=== PATIENT | male | born 1975 | race Hispanic/Latino ===

== ENCOUNTER 2018-03-13 10:13 | Emergency (ER) | payer SELFPAY ==
--- NOTE | 2018-03-13 10:48 | EDPHYS ---
Physician Documentation [facility] Name: Hemanth Plummer Jr Age: 42 yrs Sex: Male : 1975 Arrival Date: 03/13/2018 Time: 10:16 Bed 12 Private MD: None, None ED Physician Jose Angel Tapia HPI: 03/13 10:45 This 42 yrs old Male presents to ER via Ambulatory with complaints of Ear Pain.snw 10:45 The patient presents with pain, incapacitating, swelling. The complaints affect the snw left ear. Onset: The symptoms/episode began/occurred gradually, 1 week(s) ago, and became worse and became persistent. Modifying factors: The symptoms are alleviated by nothing, the symptoms are aggravated by touching. Associated signs and symptoms: The patient has no apparent associated signs or symptoms. Severity of symptoms: At their worst the symptoms were incapacitating in the emergency department the symptoms are unchanged. The patient has not experienced similar symptoms in the past. The patient has not recently seen a physician. denies use of ear plugs. Historical: - Allergies: 10:41 NKA; iw - Home Meds: 10:41 None [Active]; iw - PMHx: 10:41 None; iw - PSHx: 10:41 back surgery; iw - Immunization history:: Adult Immunizations not up to date. - Social history:: Smoking status: Patient uses tobacco products, smokes one-half pack cigarettes per day. - Ebola Screening: : Patient negative for fever greater than or equal to 101.5 degrees Fahrenheit, and additional compatible Ebola Virus Disease symptoms Patient denies exposure to infectious person Patient denies travel to an Ebola-affected area in the 21 days before illness onset No symptoms or risks identified at this time. ROS: 10:41 Constitutional: Negative for fever, chills, and weight loss, Eyes: Negative for injury, snw pain, redness, and discharge, Neck: Negative for injury, pain, and swelling, Cardiovascular: Negative for chest pain, palpitations, and edema, Respiratory: Negative for shortness of breath, cough, wheezing, and pleuritic chest pain, Abdomen/GI: Negative for abdominal pain, nausea, vomiting, diarrhea, and constipation, Back: Negative for injury and pain, : Negative for injury, bleeding, discharge, and swelling, MS/Extremity: Negative for injury and deformity, Skin: Negative for injury, rash, and discoloration, Neuro: Negative for headache, weakness, numbness, tingling, and seizure. 10:41 ENT: Positive for ear pain. Exam: 10:42 Constitutional: This is a well developed, well nourished patient who is awake, alert, snw and in no acute distress. Head/Face: Normocephalic, atraumatic. Eyes: Pupils equal round and reactive to light, extra-ocular motions intact. Lids and lashes normal. Conjunctiva and sclera are non-icteric and not injected. Cornea within normal limits. Periorbital areas with no swelling, redness, or edema. Neck: Trachea midline, no thyromegaly or masses palpated, and no cervical lymphadenopathy. Supple, full range of motion without nuchal rigidity, or vertebral point tenderness. No Meningismus. Chest/axilla: Normal chest wall appearance and motion. Nontender with no deformity. No lesions are appreciated. Respiratory: Lungs have equal breath sounds bilaterally, clear to auscultation and percussion. No rales, rhonchi or wheezes noted. No increased work of breathing, no retractions or nasal flaring. Abdomen/GI: Soft, non-tender, with normal bowel sounds. No distension or tympany. No guarding or rebound. No evidence of tenderness throughout. Back: No spinal tenderness. No costovertebral tenderness. Full range of motion. Skin: Warm, dry with normal turgor. Normal color with no rashes, no lesions, and no evidence of cellulitis. MS/ Extremity: Pulses equal, no cyanosis. Neurovascular intact. Full, normal range of motion. Neuro: Awake and alert, GCS 15, oriented to person, place, time, and situation. Cranial nerves II-XII grossly intact. Motor strength 5/5 in all extremities. Sensory grossly intact. Cerebellar exam normal. Normal gait. 10:42 ENT: External ear(s): are unremarkable, Ear canal(s): erythema, swelling, that is moderate, that is severe, of the left canal, TM's: not visable, to left 2nd to edema, Nose: is normal, Mouth: is normal, Posterior pharynx: is normal, Dental exam: missing teeth, diffusely, Voice: is normal. 10:42 Cardiovascular: Rate: tachycardic. Vital Signs: 10:40 BP 138 / 88; Pulse 103; Resp 18 S; Temp 98.3; Pulse Ox 98% on R/A; Weight 86.18 kg; iw Height 5 ft. 8 in. (172.72 cm); Pain 10/10; 10:40 Body Mass Index 28.89 (86.18 kg, 172.72 cm) iw Procedures: 10:43 Performed placement of ear wick. wick placed in left auditory canal. snw MDM: 10:36 Patient medically screened. snw 11:00 Data reviewed: vital signs, nurses notes. Data interpreted: Pulse oximetry: on room air snw is 98 %. Interpretation: normal. Counseling: I had a detailed discussion with the patient and/or guardian regarding: the historical points, exam findings, and any diagnostic results supporting the discharge/admit diagnosis, the presence of at least one elevated blood pressure reading (>120/80) during this emergency department visit, the need for outpatient follow up, for definitive care, to return to the emergency department if symptoms worsen or persist or if there are any questions or concerns that arise at home. Special discussion: I have referred the patient to see his PCP for further evaluation of high blood pressure. Based on the history and exam findings, there is no indication for further emergent testing or inpatient evaluation. I discussed with the patient/guardian the need to see the ENT specialist for further evaluation of the symptoms. I discussed with the patient/guardian the need to see the primary care provider for further evaluation of the symptoms. 03/13 10:41 Order name: [facility] [place]. Order: Ear wick; Complete Time: 10:53 snw Administered Medications: 10:52 Drug: fentaNYL (PF) 50 mcg Route: IM; Site: right deltoid; iw 10:52 Drug: Cortisporin Drops 4 drops Route: Otic; Site: left ear; iw 10:58 Drug: Motrin 400 mg Route: PO; iw Disposition: 03/13/18 10:47 Discharged to Home. Impression: Acute contact otitis externa, left ear. - Condition is Stable. - Discharge Instructions: Ear Drops, Adult, Otitis Externa. - Prescriptions for Tylenol- Codeine #3 300-30 mg Oral Tablet - take 2 tablets by ORAL route every 6 hours As needed; 20 tablet. Ciprodex 0.3- 0.1 % Otic Drops, Suspension - instill 4 drop by OTIC route every 12 hours for 7 days , for ears ONLY; 1 Container. - Work release form, Medication Reconciliation Form, Thank You Letter, Antibiotic Education, Prescription Opioid Use form. - Follow up: Private Physician; When: 2 - 3 days; Reason: Recheck today's complaints, Continuance of care, Re-evaluation by your physician. Follow up: Kirstie Lopes MD; When: 2 - 3 days; Reason: Recheck today's complaints, Continuance of care. Addendum: 03/14/2018 16:08 Co-signature as Attending Physician, Jose Angel Tapia MD I agree with the assessment and c parsons plan of care. Signatures: Jose Angel Tapia MD MD cha Therrien, Shelly, CONSTANTINE-C TERRAZZO MECHANIC HELPER-Csnw Nasreen Herrera RN RN iw Corrections: (The following items were deleted from the chart) 03/13 11:54 10:47 03/13/2018 10:47 Discharged to Home. Impression: Acute contact otitis externa, iw left ear. Condition is Stable. Forms are Medication Reconciliation Form, Thank You Letter, Antibiotic Education, Prescription Opioid Use. Follow up: Private Physician; When: 2 - 3 days; Reason: Recheck today's complaints, Continuance of care, Re-evaluation by your physician. Follow up: Kirstie Lopes; When: 2 - 3 days; Reason: Recheck today's complaints, Continuance of care. snw
--- NOTE | 2018-03-13 10:48 | ER ---
Nurse's Notes [facility] Name: Hemanth Plummer Jr Age: 42 yrs Sex: Male : 1975 Arrival Date: 03/13/2018 Time: 10:16 Bed 12 Private MD: None, None Diagnosis: Acute contact otitis externa, left ear Presentation: 03/13 10:38 Presenting complaint: Patient states: has had left ear pain X 1 week, worse yesterday, iw now swollen and can't hear, denies fever. Transition of care: patient was not received from another setting of care. Onset of symptoms was March 06, 2018. Risk Assessment: Do you want to hurt yourself or someone else? Patient reports no desire to harm self or others. Initial Sepsis Screen: Does the patient meet any 2 criteria? No. Patient's initial sepsis screen is negative. Does the patient have a suspected source of infection? No. Patient's initial sepsis screen is negative. Care prior to arrival: None. 10:38 Method Of Arrival: Ambulatory iw 10:38 Acuity: NIEVES 4 iw Triage Assessment: 11:45 General: Appears in no apparent distress. Behavior is calm. iw Historical: - Allergies: 10:41 NKA; iw - Home Meds: 10:41 None [Active]; iw - PMHx: 10:41 None; iw - PSHx: 10:41 back surgery; iw - Immunization history:: Adult Immunizations not up to date. - Social history:: Smoking status: Patient uses tobacco products, smokes one-half pack cigarettes per day. - Ebola Screening: : Patient negative for fever greater than or equal to 101.5 degrees Fahrenheit, and additional compatible Ebola Virus Disease symptoms Patient denies exposure to infectious person Patient denies travel to an Ebola-affected area in the 21 days before illness onset No symptoms or risks identified at this time. Screenin:50 Abuse screen: Denies threats or abuse. Denies injuries from another. Nutritional iw screening: No deficits noted. Tuberculosis screening: No symptoms or risk factors identified. Fall Risk None identified. Assessment: 11:00 General: Appears in no apparent distress. comfortable, Behavior is calm, cooperative. iw Pain: Complains of pain in left ear. Neuro: Level of Consciousness is awake, alert, obeys commands, Oriented to person, place, time, situation, Moves all extremities. Full function. Cardiovascular: Patient's skin is warm and dry. Respiratory: Respiratory effort is even, unlabored, Respiratory pattern is regular. EENT: Ear canal w/ drainage noted from left ear Reports pain in left ear. Derm: Skin is pink, warm \T\ dry. normal. Musculoskeletal: Range of motion: intact in all extremities. Vital Signs: 10:40 BP 138 / 88; Pulse 103; Resp 18 S; Temp 98.3; Pulse Ox 98% on R/A; Weight 86.18 kg; iw Height 5 ft. 8 in. (172.72 cm); Pain 10/10; 10:40 Body Mass Index 28.89 (86.18 kg, 172.72 cm) iw ED Course: 10:16 Patient arrived in ED. mr 10:16 None, None is Private Physician. mr 10:35 Marissa Choudhury FNP-C [facility]. snw 10:35 Jose Angel Tapia MD is Attending Physician. snw 10:37 Nasreen Herrera, RN is Primary Nurse. iw 10:39 Triage completed. iw 10:40 Arm band placed on. iw 10:47 Kirstie Lopes MD is Referral Physician. snw 11:00 Patient has correct armband on for positive identification. iw 11:54 No provider procedures requiring assistance completed. Patient did not have IV access iw during this emergency room visit. Administered Medications: 10:52 Drug: fentaNYL (PF) 50 mcg Route: IM; Site: right deltoid; iw 10:52 Drug: Cortisporin Drops 4 drops Route: Otic; Site: left ear; iw 10:58 Drug: Motrin 400 mg Route: PO; iw Outcome: 10:47 Discharge ordered by . snw 11:54 Patient left the ED. iw 11:54 Discharged to home ambulatory, with family. iw 11:54 Condition: good 11:54 Discharge instructions given to patient, family, Instructed on discharge instructions, follow up and referral plans. medication usage, Demonstrated understanding of instructions, follow-up care, medications, Prescriptions given X 1. Signatures: Marissa Choudhury FNP-C FNP-Priti Adair mr Nasreen Herrera, RN RN iw
[2018-03-13] MEDS ORDERED: FENTANYL CITR 100 MCG/2 ML ONE (10:50)
[2018-03-13] MEDS ORDERED: NEOMY/POLY/HC 1% OTIC DROPS ONE (10:50)
[2018-03-13] MEDS ORDERED: IBUPROFEN 400 MG TAB ONE (10:50)
[2018-03-13 11:57] VITALS: BP 138/88; TEMP 98.3; O2SAT 98
== END 2018-03-13 11:54 | disposition home or self-care (01) ==
LOC: ER 10:13
DX: H60.92 Unspecified otitis externa, left ear (principal); F17.210 Nicotine dependence, cigarettes, uncomplicated
CPT/HCPCS: 96372; 99283; J3010

== ENCOUNTER 2018-03-15 22:35 | Emergency (ER) | payer SELFPAY ==
[2018-03-15] MEDS ORDERED: LIDOCAINE 1% MPF 5 ML VIAL ONE (22:55)
--- NOTE | 2018-03-16 00:02 | EDPHYS ---
Physician Documentation [facility] Name: Hemanth Plummer Jr Age: 42 yrs Sex: Male : 1975 Arrival Date: 03/15/2018 Time: 22:38 Bed 5 Private MD: ED Physician James Bradford HPI: 03/15 23:11 This 42 yrs old Male presents to ER via Ambulatory with complaints of Drainage snw From Ear. 23:11 The patient presents with a fullness, hearing loss, pain, cannot keep drops in canal . snw The complaints affect the left ear. Onset: The symptoms/episode began/occurred 4 day(s) ago, and became persistent. Modifying factors: The symptoms are alleviated by nothing. Severity of symptoms: At their worst the symptoms were moderate severe. The patient has experienced a previous episode. The patient has been recently seen by a physician: The patient has been recently seen at the [facility] Emergency Department, this week. same complaints. Historical: - Allergies: 22:47 NKA; ak1 - Home Meds: 22:47 None [Active]; ak1 - PMHx: 22:47 None; ak1 - PSHx: 22:47 back surgery; ak1 - Immunization history:: Adult Immunizations unknown. - Social history:: Smoking status: unknown. - Ebola Screening: : No symptoms or risks identified at this time. ROS: 23:10 Constitutional: Negative for fever, chills, and weight loss, Eyes: Negative for injury, snw pain, redness, and discharge, Neck: Negative for injury, pain, and swelling, Cardiovascular: Negative for chest pain, palpitations, and edema, Respiratory: Negative for shortness of breath, cough, wheezing, and pleuritic chest pain, Abdomen/GI: Negative for abdominal pain, nausea, vomiting, diarrhea, and constipation, Back: Negative for injury and pain, : Negative for injury, bleeding, discharge, and swelling, MS/Extremity: Negative for injury and deformity, Skin: Negative for injury, rash, and discoloration, Neuro: Negative for headache, weakness, numbness, tingling, and seizure. 23:10 ENT: Positive for ear pain, cannot keep drops in ear canal. Exam: 23:07 Constitutional: This is a well developed, well nourished patient who is awake, alert, snw and in no acute distress. Head/Face: Normocephalic, atraumatic. Eyes: Pupils equal round and reactive to light, extra-ocular motions intact. Lids and lashes normal. Conjunctiva and sclera are non-icteric and not injected. Cornea within normal limits. Periorbital areas with no swelling, redness, or edema. Neck: Trachea midline, no thyromegaly or masses palpated, and no cervical lymphadenopathy. Supple, full range of motion without nuchal rigidity, or vertebral point tenderness. No Meningismus. Chest/axilla: Normal chest wall appearance and motion. Nontender with no deformity. No lesions are appreciated. Cardiovascular: Regular rate and rhythm with a normal S1 and S2. No gallops, murmurs, or rubs. Normal PMI, no JVD. No pulse deficits. Respiratory: Lungs have equal breath sounds bilaterally, clear to auscultation and percussion. No rales, rhonchi or wheezes noted. No increased work of breathing, no retractions or nasal flaring. Abdomen/GI: Soft, non-tender, with normal bowel sounds. No distension or tympany. No guarding or rebound. No evidence of tenderness throughout. Back: No spinal tenderness. No costovertebral tenderness. Full range of motion. Male : Normal genitalia with no discharge or lesions. 23:07 Neuro: Awake and alert, GCS 15, oriented to person, place, time, and situation. Cranial nerves II-XII grossly intact. Motor strength 5/5 in all extremities. Sensory grossly intact. Cerebellar exam normal. Normal gait. 23:07 Musculoskeletal/extremity: Extremities: grossly normal except: clubbing without cyanosis. 23:07 Skin: Appearance: thickened skin, reddish hue. 23:09 ENT: External ear(s): are unremarkable, Ear canal(s): cerumen impaction, swelling, that snw is moderate, that is severe, of the left canal, severe tenderness, Nose: is normal, Mouth: is normal, Voice: is normal. 23:11 ENT: ear wick well seated in canal, removed for visualization. snw Vital Signs: 22:45 BP 130 / 91; Pulse 109; Resp 16; Temp 98.3; Pulse Ox 97% on R/A; Weight 90.72 kg (R); ak1 Height 5 ft. 8 in. (172.72 cm) (R); Pain 8/10; 22:45 Body Mass Index 30.41 (90.72 kg, 172.72 cm) ak1 MDM: 22:44 Patient medically screened. snw 03/16 00:11 Data reviewed: vital signs, nurses notes. Data interpreted: Pulse oximetry: on room air snw is 97 %. Counseling: I had a detailed discussion with the patient and/or guardian regarding: the historical points, exam findings, and any diagnostic results supporting the discharge/admit diagnosis, the presence of at least one elevated blood pressure reading (>120/80) during this emergency department visit, the need for outpatient follow up, for definitive care, to return to the emergency department if symptoms worsen or persist or if there are any questions or concerns that arise at home. Special discussion: Based on the history and exam findings, there is no indication for further emergent testing or inpatient evaluation. I discussed with the patient/guardian the need to see the ENT specialist for further evaluation of the symptoms. Administered Medications: 00:21 Drug: Cortisporin Drops 4 drops Route: Otic; Site: left ear; lp1 00:21 Drug: Augmentin 875 mg Route: PO; lp1 00:21 Follow up: Response: Medication administered at discharge. lp1 00:21 Drug: Decadron 10 mg Route: IM; Site: right deltoid; lp1 00:21 Follow up: Response: No adverse reaction lp1 Disposition: : Co-signature as Attending Physician, James Bradford MD. rn Disposition: 03/16/18 00:01 Discharged to Home. Impression: Otitis media, unspecified, left ear, Otitis externa. - Condition is Stable. - Discharge Instructions: Otitis Media, Adult, Otitis Externa. - Prescriptions for Augmentin 500- 125 mg Oral Tablet - take 1 tablet by ORAL route every 8 hours for 10 days; 30 tablet. Diclofenac Sodium 75 mg Oral Tablet Sustained Release - take 1 tablet by ORAL route 2 times per day; 30 tablet. - Work release form, Medication Reconciliation Form, Thank You Letter, Antibiotic Education, Prescription Opioid Use form. - Follow up: Kirstie Lopes MD; When: 1 - 2 days; Reason: Recheck today's complaints, Continuance of care. Signatures: Marissa Choudhury, RIVET SORTER-C RIVET SORTER-Csnw James Bradford MD MD rn Kaylie Awad RN RN lp1 Fabienne Lang RN RN ak1 Corrections: (The following items were deleted from the chart) 00:24 00:01 03/16/2018 00:01 Discharged to Home. Impression: Otitis media, unspecified, left lp1 ear; Otitis externa. Condition is Stable. Forms are Medication Reconciliation Form, Thank You Letter, Antibiotic Education, Prescription Opioid Use. Follow up: Kirstie Lopes; When: 1 - 2 days; Reason: Recheck today's complaints, Continuance of care. snw
--- NOTE | 2018-03-16 00:02 | ER ---
Nurse's Notes [facility] Name: Hemanth Plummer Jr Age: 42 yrs Sex: Male : 1975 Arrival Date: 03/15/2018 Time: 22:38 Bed 5 Private MD: Diagnosis: Otitis media, unspecified, left ear;Otitis externa Presentation: 03/15 22:45 Presenting complaint: Patient states: he was seen in ER Wednesday with ear wick placed in ak1 left ear. pt stated he puts the drops in his left ear every 12 hours but the drops "do not stay". Transition of care: patient was not received from another setting of care. Onset of symptoms is unknown. Risk Assessment: Do you want to hurt yourself or someone else? Patient reports no desire to harm self or others. Initial Sepsis Screen: Does the patient meet any 2 criteria? No. Patient's initial sepsis screen is negative. Does the patient have a suspected source of infection? No. Patient's initial sepsis screen is negative. Care prior to arrival: None. 22:45 Method Of Arrival: Ambulatory ak1 22:45 Acuity: NIEVES 4 ak1 Triage Assessment: 23:49 General: Appears uncomfortable, Behavior is calm, cooperative. Pain: Complains of pain ak1 in left ear. EENT: Reports pain in left ear. Neuro: No deficits noted. Cardiovascular: No deficits noted. Respiratory: No deficits noted. GI: No signs and/or symptoms were reported involving the gastrointestinal system. : No signs and/or symptoms were reported regarding the genitourinary system. Derm: No signs and/or symptoms reported regarding the dermatologic system. Musculoskeletal: No signs and/or symptoms reported regarding the musculoskeletal system. Historical: - Allergies: 22:47 NKA; ak1 - Home Meds: 22:47 None [Active]; ak1 - PMHx: 22:47 None; ak1 - PSHx: 22:47 back surgery; ak1 - Immunization history:: Adult Immunizations unknown. - Social history:: Smoking status: unknown. - Ebola Screening: : No symptoms or risks identified at this time. Screenin:49 Abuse screen: Denies threats or abuse. Denies injuries from another. Nutritional ak1 screening: No deficits noted. Tuberculosis screening: No symptoms or risk factors identified. Fall Risk None identified. Assessment: 23:00 General: Appears uncomfortable, Behavior is appropriate for age. Pain: Complains of lp1 pain in left ear Pain currently is 10 out of 10 on a pain scale. Neuro: Level of Consciousness is awake, alert, obeys commands. Cardiovascular: Patient's skin is warm and dry. Respiratory: Respiratory effort is even, unlabored. GI: No signs and/or symptoms were reported involving the gastrointestinal system. : No signs and/or symptoms were reported regarding the genitourinary system. EENT: Ear canal ear wick in place. Derm: Skin is pink, warm \\T\\ dry. Musculoskeletal: Circulation, motion, and sensation intact. Vital Signs: 22:45 BP 130 / 91; Pulse 109; Resp 16; Temp 98.3; Pulse Ox 97% on R/A; Weight 90.72 kg (R); ak1 Height 5 ft. 8 in. (172.72 cm) (R); Pain 8/10; 22:45 Body Mass Index 30.41 (90.72 kg, 172.72 cm) ak1 ED Course: 22:38 Patient arrived in ED. es 22:43 Marissa Choudhury FNP-C is PHCP. snw 22:43 James Bradford MD is Attending Physician. snw 22:45 Arm band placed on Patient placed in an exam room, on a stretcher, Patient notified of ak1 wait time. 22:46 Triage completed. ak1 23:48 Fabienne Lang, RN is Primary Nurse. ak1 23:50 Patient has correct armband on for positive identification. Bed in low position. Call ak1 light in reach. Side rails up X 1. 03/16 00:00 Kirstie Lopes MD is Referral Physician. snw 00:21 No provider procedures requiring assistance completed. Patient did not have IV access lp1 during this emergency room visit. Administered Medications: 00:21 Drug: Cortisporin Drops 4 drops Route: Otic; Site: left ear; lp1 00:21 Drug: Augmentin 875 mg Route: PO; lp1 00:21 Follow up: Response: Medication administered at discharge. lp1 00:21 Drug: Decadron 10 mg Route: IM; Site: right deltoid; lp1 00:21 Follow up: Response: No adverse reaction lp1 Outcome: 00:01 Discharge ordered by . carson 00:22 Discharged to home ambulatory, with significant other. lp1 00:22 Condition: good 00:22 Discharge instructions given to patient, Instructed on discharge instructions, follow up and referral plans. medication usage, Demonstrated understanding of instructions, follow-up care, medications, Prescriptions given X 2. 00:24 Patient left the ED. lp1 Signatures: Marissa Choudhury, DOCUMENT CONTROL SUPERVISOR-C DOCUMENT CONTROL SUPERVISOR-Csnw Leonarda Segura Laura, RN RN lp1 Fabienne Lang RN RN ak1
[2018-03-16] MEDS ORDERED: NEOMY/POLY/HC 1% OTIC DROPS ONE (00:03)
[2018-03-16] MEDS ORDERED: DEXAMETHASONE 10 MG/ML VIAL ONE (00:04)
[2018-03-16] MEDS ORDERED: AMOX/K CLAV 875 MG TAB ONE (00:04)
[2018-03-16 00:28] VITALS: BP 130/91; TEMP 98.3; O2SAT 97
== END 2018-03-16 00:24 | disposition home or self-care (01) ==
LOC: ER 22:35
DX: H66.92 Otitis media, unspecified, left ear (principal); H60.92 Unspecified otitis externa, left ear
CPT/HCPCS: 96372; 99283; J1100

== ENCOUNTER 2019-07-05 23:02 | Emergency (ER) | payer SELFPAY ==
[2019-07-05] MEDS ORDERED: KETOROLAC 30 MG/ML INJ ONE (23:28)
[2019-07-05] MEDS ORDERED: MORPHINE 4 MG/ML SYR ONE (23:28)
--- NOTE | 2019-07-06 00:34 | ER ---
Nurse's Notes [facility] Name: Hemanth Plummer Jr Age: 43 yrs Sex: Male : 1975 Arrival Date: 07/05/2019 Time: 23:06 Bed 19 Private MD: Diagnosis: Hydrocele, unspecified;Epididymitis Presentation: 07/05 23:10 Presenting complaint: Patient states: left testicular swelling and pain that began la1 yesterday'. Transition of care: patient was not received from another setting of care. Onset of symptoms was July 05, 2019. Risk Assessment: Do you want to hurt yourself or someone else? Patient reports no desire to harm self or others. Initial Sepsis Screen: Does the patient meet any 2 criteria? No. Patient's initial sepsis screen is negative. Does the patient have a suspected source of infection? No. Patient's initial sepsis screen is negative. Care prior to arrival: None. 23:10 Method Of Arrival: Ambulatory la1 23:10 Acuity: NIEVES 3 la1 Triage Assessment: 23:23 General: Appears in no apparent distress. uncomfortable, Behavior is calm, cooperative, cc3 appropriate for age. Pain: Complains of pain in left testicle Pain currently is 10 out of 10 on a pain scale. Quality of pain is described as aching. Historical: - Allergies: 23:11 NKA; la1 - PMHx: 23:11 None; la1 - Immunization history:: Adult Immunizations up to date. - Social history:: Smoking status: Patient uses tobacco products, smokes one pack cigarettes per day. - Ebola Screening: : No symptoms or risks identified at this time. - Family history:: not pertinent. - Hospitalizations: : No recent hospitalization is reported. Screenin:23 Abuse screen: Denies threats or abuse. Denies injuries from another. Nutritional cc3 screening: No deficits noted. Tuberculosis screening: No symptoms or risk factors identified. Fall Risk Ambulatory Aid- None/Bed Rest/Nurse Assist (0 pts). Gait- Normal/Bed Rest/Wheelchair (0 pts) Mental Status- Oriented to own ability (0 pts). Assessment: 23:23 General: Appears in no apparent distress. uncomfortable, Behavior is calm, cooperative, cc3 appropriate for age. Pain: Complains of pain in left testicle Pain currently is 10 out of 10 on a pain scale. Quality of pain is described as aching. Neuro: Level of Consciousness is awake, alert, obeys commands, Oriented to person, place, time, situation, Appropriate for age. Cardiovascular: Denies chest pain, Heart tones S1 S2 present Capillary refill < 3 seconds in bilateral fingers Patient's skin is warm and dry. Respiratory: Airway is patent Respiratory effort is even, unlabored, Respiratory pattern is regular, symmetrical. GI: Abdomen is round non-distended, Bowel sounds present X 4 quads. Abd is soft and non tender X 4 quads. : No signs and/or symptoms were reported regarding the genitourinary system. EENT: No signs and/or symptoms were reported regarding the EENT system. Derm: Skin is intact, is healthy with good turgor, Skin is pink, warm \T\ dry. normal. Musculoskeletal: Circulation, motion, and sensation intact. Range of motion: intact in all extremities. 23:44 Reassessment: Patient taken by it support technician to their department by wheelchair. cc3 07/06 00:05 Reassessment: Patient appears in no apparent distress at this time. Patient and/or cc3 family updated on plan of care and expected duration. Pain level reassessed. Patient is alert, oriented x 3, equal unlabored respirations, skin warm/dry/pink. Patient came back from ultrasound department, awaiting result. Patient states feeling better. Patient states symptoms have improved. 00:33 Reassessment: Dr. Bradford ordered patient for discharge but after the IV antibiotic. cc3 01:09 Reassessment: Patient appears in no apparent distress at this time. Patient and/or cc3 family updated on plan of care and expected duration. Pain level reassessed. Patient is alert, oriented x 3, equal unlabored respirations, skin warm/dry/pink. 02:00 Reassessment: Patient appears in no apparent distress at this time. Patient and/or cc3 family updated on plan of care and expected duration. Pain level reassessed. Patient is alert, oriented x 3, equal unlabored respirations, skin warm/dry/pink. Dr. Bradford discharged the patient home with prescriptions given. IV cannula removed and patient left ER vitally stable and ambulatory. No valuables left in the patient's room. Patient denies pain at this time. Patient states feeling better. Patient states symptoms have improved. Vital Signs: 07/05 23:11 BP 136 / 99; Pulse 108; Resp 16; Temp 98.1; Pulse Ox 100% on R/A; Weight 90.72 kg; la1 Height 5 ft. 8 in. (172.72 cm); 07/06 00:13 BP 138 / 91; Pulse 99; Resp 16 S; Pulse Ox 96% on R/A; Pain 6/10; cc3 01:10 BP 128 / 87; Pulse 95; Resp 18 S; Pulse Ox 95% on R/A; cc3 01:50 BP 125 / 88; Pulse 96; Resp 16 S; Pulse Ox 95% on R/A; Pain 2/10; cc3 07/05 23:11 Body Mass Index 30.41 (90.72 kg, 172.72 cm) la1 ED Course: 07/05 23:06 Patient arrived in ED. es 23:10 Triage completed. la1 23:10 Arm band placed on left wrist. la1 23:16 James Bradford MD is Attending Physician. rn 23:23 Charlene Veras is Primary Nurse. cc3 23:23 Patient has correct armband on for positive identification. Placed in gown. Bed in low cc3 position. Call light in reach. Side rails up X 1. Pulse ox on. NIBP on. 23:30 Inserted saline lock: 20 gauge in left forearm, using aseptic technique. inserted by ED cc3 tanvi Patino. 23:57 US Scrotum Testicles In Process Unspecified. EDMS 07/06 00:33 Jair Kc MD is Referral Physician. rn 02:00 No provider procedures requiring assistance completed. IV discontinued, intact, cc3 bleeding controlled, No redness/swelling at site. Pressure dressing applied. Administered Medications: 07/05 23:35 Drug: TORadol - Ketorolac 15 mg Route: IVP; Site: left forearm; cc3 07/06 00:14 Follow up: Response: No adverse reaction; Pain is decreased cc3 07/05 23:40 Drug: morphine 4 mg {Note: RASS 0.} Route: IVP; Site: left forearm; cc3 07/06 00:14 Follow up: Response: No adverse reaction; Pain is decreased; RASS: Alert and Calm (0) cc3 00:44 Drug: Cipro 400 mg Volume: 200 ml; Route: IVPB; Infused Over: 60 mins; Site: left cc3 forearm; 02:00 Follow up: Response: No adverse reaction; IV Status: Completed infusion; IV Intake: cc3 200ml Intake: 02:00 IV: 200ml; Total: 200ml. cc3 Outcome: 00:33 Discharge ordered by . rn 02:00 Discharged to home ambulatory. cc3 02:00 Condition: stable 02:00 Discharge instructions given to patient, Instructed on discharge instructions, follow up and referral plans. medication usage, Demonstrated understanding of instructions, follow-up care, medications, Prescriptions given X 3. 02:04 Patient left the ED. cc3 Signatures: Dispatcher [employer] Leonarda Diaz Roman, MD MD rn Attema, Lee, RN RN Charlene Knutson cc3
--- NOTE | 2019-07-06 00:35 | EDPHYS ---
Physician Documentation [facility] Name: Hemanth Plummer Jr Age: 43 yrs Sex: Male : 1975 Arrival Date: 07/05/2019 Time: 23:06 Bed 19 Private MD: ED Physician James Bradford HPI: 07/05 23:23 This 43 yrs old Male presents to ER via Ambulatory with complaints of rn Testicular Swelling. 23:23 The patient presents with scrotal pain, swelling. Onset: The symptoms/episode rn began/occurred yesterday. Modifying factors: The symptoms are alleviated by nothing, the symptoms are aggravated by movement, pressure. Associated signs and symptoms: Pertinent negatives: abdominal pain, constipation, diarrhea, dysuria, fever. Severity of symptoms: At their worst the symptoms were moderate, in the emergency department the symptoms are unchanged. The patient has not experienced similar symptoms in the past. The patient has not recently seen a physician. Reports left scrotal swelling and pain, began yesterday, constant, worsening, no trauma, reports sweats, no inguinal hernias in past. NO dysuria. . Historical: - Allergies: 23:11 NKA; la1 - PMHx: 23:11 None; la1 - Immunization history:: Adult Immunizations up to date. - Social history:: Smoking status: Patient uses tobacco products, smokes one pack cigarettes per day. - Ebola Screening: : No symptoms or risks identified at this time. - Family history:: not pertinent. - Hospitalizations: : No recent hospitalization is reported. ROS: 23:23 Constitutional: Negative for fever, and weight loss, Cardiovascular: Negative for chest rn pain, palpitations, and edema, Respiratory: Negative for shortness of breath, cough, wheezing, and pleuritic chest pain, Abdomen/GI: Negative for abdominal pain, nausea, vomiting, diarrhea, and constipation, Back: Negative for injury and pain, : Negative for injury, bleeding, discharge, + for swelling and pain of left livia-scrotum MS/Extremity: Negative for injury and deformity, Skin: Negative for injury, rash, and discoloration, Neuro: Negative for headache, weakness, numbness, tingling, and seizure. Exam: 23:23 Constitutional: This is a well developed, well nourished patient who is awake, alert, rn appears uncomfortable Abdomen/GI: soft, non-tender, no masses, no inguinal swelling or tenderness Male : + swollen left livia-scrotum with fullness, mild left testicular tenderness but more pronounced superiorly. No abscess or cellulits of scrotum/perineum. Normal penis. Skin: Warm, dry with normal turgor. Normal color with no rashes, no lesions, and no evidence of cellulitis. MS/ Extremity: Pulses equal, no cyanosis. Neurovascular intact. Full, normal range of motion. Equal circumference. Neuro: Awake and alert, GCS 15. Motor strength 5/5 in all extremities. Sensory grossly intact. Vital Signs: 23:11 BP 136 / 99; Pulse 108; Resp 16; Temp 98.1; Pulse Ox 100% on R/A; Weight 90.72 kg; la1 Height 5 ft. 8 in. (172.72 cm); 07/06 00:13 BP 138 / 91; Pulse 99; Resp 16 S; Pulse Ox 96% on R/A; Pain 6/10; cc3 01:10 BP 128 / 87; Pulse 95; Resp 18 S; Pulse Ox 95% on R/A; cc3 01:50 BP 125 / 88; Pulse 96; Resp 16 S; Pulse Ox 95% on R/A; Pain 2/10; cc3 07/05 23:11 Body Mass Index 30.41 (90.72 kg, 172.72 cm) la1 MDM: 07/05 23:16 Patient medically screened. rn 07/06 00:31 Differential diagnosis: UTI, urethritis, epididimytis. Data reviewed: vital signs, rn nurses notes, lab test result(s), radiologic studies, ultrasound, and as a result, I will discharge patient. Counseling: I had a detailed discussion with the patient and/or guardian regarding: the historical points, exam findings, and any diagnostic results supporting the discharge/admit diagnosis, lab results, radiology results, the need for outpatient follow up, to return to the emergency department if symptoms worsen or persist or if there are any questions or concerns that arise at home. Response to treatment: the patient's symptoms have mildly improved after treatment, and as a result, I will discharge patient. Special discussion: I discussed with the patient/guardian in detail that at this point there is no indication for admission to the hospital. It is understood, however, that if the symptoms persist or worsen the patient needs to return immediately for re-evaluation. Based on the history and exam findings, there is no indication for further emergent testing or inpatient evaluation. I discussed with the patient/guardian the need to see the urologist for further evaluation of the symptoms. ED course: Per U/S tech, + mild enlargement of epididymis, good flow, neg for UTI. Will treat with pain meds, abx, and urology f/u. . 07/05 23:23 Order name: Urine Culture rn 07/05 23:23 Order name: Urine Microscopic Only; Complete Time: 01:01 rn 07/05 23:17 Order name: US Scrotum Testicles rn 07/06 00:11 Order name: Urine Dipstick--Ancillary (enter results); Complete Time: 01:01 mw2 07/05 23:23 Order name: IV Start; Complete Time: 23:41 rn 07/05 23:23 Order name: Urine Dipstick-Ancillary (obtain specimen); Complete Time: 00:10 rn Administered Medications: 07/05 23:35 Drug: TORadol - Ketorolac 15 mg Route: IVP; Site: left forearm; cc3 07/06 00:14 Follow up: Response: No adverse reaction; Pain is decreased cc3 07/05 23:40 Drug: morphine 4 mg {Note: RASS 0.} Route: IVP; Site: left forearm; 3 07/06 00:14 Follow up: Response: No adverse reaction; Pain is decreased; RASS: Alert and Calm (0) cc3 00:44 Drug: Cipro 400 mg Volume: 200 ml; Route: IVPB; Infused Over: 60 mins; Site: left cc3 forearm; 02:00 Follow up: Response: No adverse reaction; IV Status: Completed infusion; IV Intake: cc3 200ml Disposition: 07/06/19 00:33 Discharged to Home. Impression: Hydrocele, unspecified, Epididymitis. - Condition is Stable. - Discharge Instructions: Epididymitis, Scrotal Masses, Hydrocele, Adult. - Prescriptions for Cipro 500 mg Oral Tablet - take 1 tablet by ORAL route every 12 hours for 10 days; 20 tablet. Tylenol- Codeine #3 300-30 mg Oral Tablet - take 2 tablets by ORAL route every 6-8 hours As needed; 20 tablet. ketorolac 10 mg Oral tablet - take 1 tablet by ORAL route every 6 hours not to exceed 40 mg in 24hrs; 20 tablet. - Medication Reconciliation Form, Thank You Letter, Antibiotic Education, Prescription Opioid Use form. - Follow up: Jair Kc MD; When: As needed; Reason: Recheck today's complaints, Re-evaluation by your physician. - Problem is new. - Symptoms have improved. Signatures: Dispatcher [employer] EDMS James Bradford MD MD rn Attema, Lee, RN RN la1 Charlene Veras cc3 Corrections: (The following items were deleted from the chart) 02:04 00:33 07/06/2019 00:33 Discharged to Home. Impression: Hydrocele, unspecified; cc3 Epididymitis. Condition is Stable. Forms are Medication Reconciliation Form, Thank You Letter, Antibiotic Education, Prescription Opioid Use. Follow up: Jair Kc; When: As needed; Reason: Recheck today's complaints, Re-evaluation by your physician. Problem is new. Symptoms have improved. rn
[2019-07-06] MEDS ORDERED: CIPROFLOXACIN 400mg IV 400 MG/200 ML BAG IV ONE (00:40)
[2019-07-06 00:43] LABS: Urine Culture Reflex Order NOT NEEDED
[2019-07-06 00:44] LABS: Urine Mucus 3+ /HPF (NONE SEEN)
[2019-07-06 00:58] LABS: Urine Bacteria 20-50 /HPF (NONE SEEN); Urine RBC NONE SEEN /HPF (NONE SEEN)
[2019-07-06 00:59] LABS: Urine Sperm PRESENT (NONE SEEN)
[2019-07-06 01:00] LABS: Urine Blood NEGATIVE (NEG); Urine Glucose NEGATIVE (NEG); Urine Protein 1+ (NEG); Urine Specific Gravity >1.030 (1.005-1.030); Urine pH 5.5 (5.0-7.0)
[2019-07-06 02:14] VITALS: TEMP 98.1
[2019-07-06 02:16] VITALS: BP 128/87; O2SAT 95
--- NOTE | 2019-07-06 08:01 | RAD REPORT ---
EXAM DESCRIPTION: US - Scrotum Testicles - 07/05/2019 11:57 pm CLINICAL HISTORY: Testicular pain, scrotal pain and swelling Preliminary findings provided at the time of the study. COMPARISON: None. FINDINGS: Doppler evaluation shows normal blood flow in each testicle. No testicular mass. No suspic ious or asymmetric blood flow pattern. Small left hydrocele is present. A 6 millimeter left epididyma l cyst is present. No other significant epididymis finding. No other significant findings. IMPRESSION: No torsion or other testicular abnormality seen. Small incidental left epididymal cyst and small left hydrocele.
== END 2019-07-06 02:04 | disposition home or self-care (01) ==
LOC: ER 23:02
DX: N45.1 Epididymitis (principal); F17.210 Nicotine dependence, cigarettes, uncomplicated
CPT/HCPCS: 76870; 81003; 81015; 87086; 87088; 96365; 96375; 99284; J0744

== ENCOUNTER 2019-12-19 17:45 | Emergency (ER) | payer SELFPAY ==
[2019-12-19] MEDS ORDERED: MORPHINE 4 MG/ML SYR ONE (18:20)
[2019-12-19] MEDS ORDERED: ONDANSETRON 4 MG/2 ML VIAL ONE (18:20)
[2019-12-19] MEDS ORDERED: NA CHLORIDE 0.9% 0 ML ONE (18:20)
--- NOTE | 2019-12-19 18:50 | RAD REPORT ---
EXAM DESCRIPTION: CT - Stone Protocol - 12/19/2019 6:15 pm CLINICAL HISTORY: ABD PAIN COMPARISON: Scrotum Testicles dated 12/19/2019 TECHNIQUE: Axial 5 mm thick images were obtained without oral or IV contrast. The [id number] span s the entirety of the system including uppermost abdomen and lung bases. Exam extended through the scrotum. All CT scans are performed using dose optimization technique as appropriate and may include automated exposure control or mA/KV adjustment according to patient size. FINDINGS: No hydronephrosis is present and no obstructing ureteral calculi. No suspicious renal mass es. Isodense masses and pyelonephritis are not excluded on a stone protocol CT scan. No significant a drenal finding. No urinary bladder suspicious finding. Prostate gland and seminal vesicles within nor mal limits. Patient has bilateral fat filled inguinal hernias. No bowel involvement. Scrotal wall appears thicken ed or edematous. Epididymal tissues are prominent, more so on the left. Findings are separately detai led on testicular ultrasound. No abnormal air density. No abnormality in the perineum. Imaged portions of the liver, spleen and pancreas show no suspicious findings on non-contrast imaging . No gallbladder or biliary tree abnormality identified. Gallstones can be occult on CT imaging. No suspicious bowel findings. No appendicitis or other acute bowel process seen. Diverticulosis is mi nimal. No mass or bulky lymphadenopathy. No free air or pneumatosis. No free fluid identified. No significant bony abnormality. Lower lumbar postsurgical changes are present. IMPRESSION: No acute peritoneal or retroperitoneal findings identifiable. Epididymal tissues are prominent and scrotal wall appears mildly thickened. Bilateral fat filled ingu inal hernias are present. Isodense masses and pyelonephritis are not excluded on stone protocol technique.
--- NOTE | 2019-12-19 18:52 | RAD REPORT ---
EXAM DESCRIPTION: US - Scrotum Testicles - 12/19/2019 6:36 pm CLINICAL HISTORY: PAIN COMPARISON: Scrotum Testicles dated 07/05/2019 FINDINGS: Testicular tissue is homogeneous. No focal lesions identified. Doppler evaluation shows a normal, symmetric blood flow to testicular tissues. Epididymal tissues are prominent, left greater th an right. Epididymal tissue is not abnormally hyperemic. Epididymitis would still be possible. Minima l left hydrocele is present. No varicocele confirmed. Left epididymis does contain a small 5 millimet er cyst. IMPRESSION: No suspicion for torsion. Normal blood flow is seen within each testicle. No intratestic ular mass. Left epididymis is enlarged relative to the right but without hyperemia. Epididymitis would still be a consideration.
[2019-12-19 18:55] LABS: Absolute Lymphocytes (CBC) 2.4 K/uL (0.7-4.9); Basophils % 0.4 % (0-1.3); Hematocrit 45.5 % (39.6-49.0); Lymphocytes % 35.3 % (15.3-44.8); MPV 7.4 fL (7.6-11.3); RBC Red Blood Cell Count 5.03 M/uL (4.33-5.43)
[2019-12-19 19:13] LABS: Albumin 3.8 g/dL (3.4-5.0); Bilirubin Total 0.4 mg/dL (0.2-1.0); Potassium 4.1 mmol/L (3.5-5.1); Protein, Total 8.4 g/dL (6.4-8.2)
[2019-12-19] MEDS ORDERED: Levofloxacin 750mg IV 750 MG/150 ML BAG IV ONE (19:16)
[2019-12-19] MEDS ORDERED: CEFTRIAXONE/SWI 1gm 1 GM/10 ML SYR ONE (19:17)
[2019-12-19] MEDS ORDERED: NA CHLORIDE 0.9% 1,000 ML ONE (19:17)
[2019-12-19] MEDS ORDERED: KETOROLAC 30 MG/ML INJ ONE (19:17)
--- NOTE | 2019-12-19 19:29 | ER ---
Nurse's Notes [facility] Name: Hemanth Plummer Jr Age: 43 yrs Sex: Male : 1975 Arrival Date: 12/19/2019 Time: 17:47 Bed 23 Private MD: Diagnosis: Epididymo-orchitis;Epididymitis;Inguinal hernia Presentation: 12/18 17:48 Chief complaint: Patient states: lower abd pain, testicular swelling started yesterday. sv Denies cough, congestion. Coronavirus screen: Patient denies fever greater than 100.4F, cough, shortness of breath, or difficulty breathing. Proceed with normal triage process. Ebola Screen: No symptoms or risks identified at this time. Initial Sepsis Screen: Does the patient meet any 2 criteria? No. Patient's initial sepsis screen is negative. Does the patient have a suspected source of infection? No. Patient's initial sepsis screen is negative. Risk Assessment: Do you want to hurt yourself or someone else? Patient reports no desire to harm self or others. Care prior to arrival: Medication(s) given: Motrin, 600 mg, taken 2 hours ago. 17:48 Method Of Arrival: Ambulatory sv 17:48 Acuity: NIEVES 3 sv Triage Assessment: 17:55 General: Appears uncomfortable, Behavior is calm, cooperative. ls4 17:55 : Reports pain scrotum. ls4 Historical: - Allergies: 17:48 NKA; sv - PMHx: 17:53 None; sv - PSHx: 17:53 None; Back; sv - Immunization history:: Flu vaccine is not up to date. - Social history:: Smoking status: Patient reports the use of cigarette tobacco products, smokes one-half pack cigarettes per day. - Family history:: not pertinent. Screenin/30 17:55 Abuse screen: Denies threats or abuse. Denies injuries from another. Nutritional ls4 screening: No deficits noted. Tuberculosis screening: No symptoms or risk factors identified. Fall Risk None identified. Assessment: 12/18 19:38 Reassessment: Patient appears in no apparent distress at this time. Patient and/or ls4 family updated on plan of care and expected duration. Pain level reassessed. Patient is alert, oriented x 3, equal unlabored respirations, skin warm/dry/pink. Patient states symptoms have improved. Pain: Complains of pain in pelvis Pain currently is 2 out of 10 on a pain scale. GI: Bowel sounds present X 4 quads. Abd is soft and non tender X 4 quads. 20:30 Reassessment: Patient appears in no apparent distress at this time. Patient and/or ls4 family updated on plan of care and expected duration. Pain level reassessed. Patient is alert, oriented x 3, equal unlabored respirations, skin warm/dry/pink. Patient states feeling better. Vital Signs: 17:48 BP 148 / 97; Pulse 109; Resp 18; Temp 98.3; Pulse Ox 96% ; Weight 86.18 kg; Height 5 sv ft. 7 in. (170.18 cm); Pain 8/10; 19:38 BP 123 / 93; Pulse 77; Resp 14; Pulse Ox 100% on R/A; Pain 2/10; ls4 20:35 BP 122 / 74; Pulse 72; Resp 17; Temp 98.3; Pulse Ox 99% on R/A; Pain 3/10; ls4 17:48 Body Mass Index 29.76 (86.18 kg, 170.18 cm) sv ED Course: 12/17 17:55 Patient has correct armband on for positive identification. Bed in low position. Call ls4 light in reach. Side rails up X 1. Pulse ox on. NIBP on. 12/18 17:47 Patient arrived in ED. am2 17:48 Arm band placed on. sv 17:52 Jose Angel Tapia MD is Attending Physician. [facility] 17:52 Triage completed. sv 17:59 Estefany Pineda, RN is Primary Nurse. ls4 18:16 CT Stone Protocol In Process Unspecified. EDMS 18:35 Marissa Choudhury FNP-C is PHCP. snw 18:36 US Scrotum Testicles In Process Unspecified. EDMS 18:51 Initial lab(s) drawn, by me, sent to lab. Inserted saline lock: 20 gauge in left em1 antecubital area, using aseptic technique. Blood collected. 19:28 Jair Kc MD is Referral Physician. snw 20:30 No provider procedures requiring assistance completed. ls4 20:30 IV discontinued, intact, bleeding controlled, No redness/swelling at site. Pressure ls4 dressing applied. Administered Medications: 18:30 Drug: NS 0.9% 1000 ml Route: IV; Rate: 1 bolus; Site: left antecubital; ls4 19:30 Follow up: IV Status: Completed infusion ls4 18:30 Drug: Zofran (Ondansetron) 4 mg Route: IVP; Site: left antecubital; ls4 19:26 Follow up: Response: No adverse reaction; Marked relief of symptoms ls4 19:26 Follow up: Response: No adverse reaction; Marked relief of symptoms ls4 18:32 Drug: morphine 4 mg Route: IVP; Site: left antecubital; ls4 19:00 Follow up: Response: No adverse reaction; Marked relief of symptoms ls4 18:59 Not Given (Other Intervention Used; o): morphine 2 mg IVP once; (PAIN>8) RASS on ADMN: ls4 Combtv4, Very Agttd3, Agttd2, Rstlss1, AlertClm0, Drwsy-1, LtSdtn-2, ModSdtn-3, DpSdtn-4, UnArsble-5 x2 19:10 Drug: Rocephin 1 grams Route: IV; Rate: per protocol; Site: right antecubital; ls4 19:29 Follow up: Response: No adverse reaction; IV Status: Completed infusion; IV Intake: 48ulqm2 19:19 Drug: LevaQUIN 750 mg Volume: 150 ml; Route: IVPB; Infused Over: 90 mins; Site: right ls4 antecubital; 20:30 Follow up: IV Status: Completed infusion; IV Intake: 150ml ls4 20:30 Follow up: Response: No adverse reaction ls4 19:28 Drug: TORadol 30 mg Route: IVP; Site: left antecubital; ls4 19:36 Follow up: Response: No adverse reaction; Marked relief of symptoms ls4 20:00 Follow up: Response: No adverse reaction; Marked relief of symptoms ls4 Intake: 19:29 IV: 10ml; Total: 10ml. ls4 20:30 IV: 150ml; Total: 160ml. ls4 Outcome: 19:29 Discharge ordered by MD. byrd 20:30 Discharged to home ambulatory. ls4 20:30 Condition: good 20:30 Discharge instructions given to patient, Instructed on discharge instructions, follow up and referral plans. medication usage. 21:06 Patient left the ED. ls4 Signatures: Dispatcher [employer] Kirstie Desai, RN RN Jose Angel Persaud MD MD cha Therrien, Shelly, DIRECTOR OF DESIGN-C DIRECTOR OF DESIGN-Csnw Primo Akbar 1 Naomi Jaramillo am2 Estefany Pineda RN RN ls4 Corrections: (The following items were deleted from the chart) 19:00 18:30 Zofran (Ondansetron) 4 mg IVP in right antecubital ls4 ls4
--- NOTE | 2019-12-19 19:30 | EDPHYS ---
Physician Documentation [facility] Name: Hemanth Plummer Jr Age: 43 yrs Sex: Male : 1975 Arrival Date: 12/19/2019 Time: 17:47 Bed 23 Private MD: ED Physician Jose Angel Tapia HPI: 12/18 18:08 This 43 yrs old Male presents to ER via Ambulatory with complaints of manjit Abdominal Pain - low, Testicular Swelling. 18:08 The patient presents with flank pain, of the left low back and right low back, scrotal manjit pain, of the right side, of the left side, of both sides. Onset: The symptoms/episode began/occurred 3 day(s) ago. Modifying factors: The symptoms are alleviated by nothing, the symptoms are aggravated by nothing. Associated signs and symptoms: The patient has no apparent associated signs or symptoms. Severity of symptoms: At their worst the symptoms were moderate, in the emergency department the symptoms are unchanged. The patient has experienced similar episodes in the past, a few times. Historical: - Allergies: 17:48 NKA; sv - PMHx: 17:53 None; sv - PSHx: 17:53 None; Back; sv - Immunization history:: Flu vaccine is not up to date. - Social history:: Smoking status: Patient reports the use of cigarette tobacco products, smokes one-half pack cigarettes per day. - Family history:: not pertinent. ROS: 18:08 Constitutional: Negative for fever, chills, and weight loss, Eyes: Negative for injury, manjit pain, redness, and discharge, ENT: Negative for injury, pain, and discharge, Neck: Negative for injury, pain, and swelling, Cardiovascular: Negative for chest pain, palpitations, and edema, Respiratory: Negative for shortness of breath, cough, wheezing, and pleuritic chest pain, Back: Negative for injury and pain, MS/Extremity: Negative for injury and deformity, Skin: Negative for injury, rash, and discoloration, Neuro: Negative for headache, weakness, numbness, tingling, and seizure, Psych: Negative for depression, anxiety, suicide ideation, homicidal ideation, and hallucinations, Allergy/Immunology: Negative for hives, rash, and allergies, Endocrine: Negative for neck swelling, polydipsia, polyuria, polyphagia, and marked weight changes, Hematologic/Lymphatic: Negative for swollen nodes, abnormal bleeding, and unusual bruising. 18:08 Abdomen/GI: Positive for abdominal pain, of the suprapubic area, right lower quadrant and left lower quadrant. Exam: 18:08 Constitutional: This is a well developed, well nourished patient who is awake, alert, manjit and in no acute distress. Head/Face: Normocephalic, atraumatic. Eyes: Pupils equal round and reactive to light, extra-ocular motions intact. Lids and lashes normal. Conjunctiva and sclera are non-icteric and not injected. Cornea within normal limits. Periorbital areas with no swelling, redness, or edema. ENT: Nares patent. No nasal discharge, no septal abnormalities noted. Tympanic membranes are normal and external auditory canals are clear. Oropharynx with no redness, swelling, or masses, exudates, or evidence of obstruction, uvula midline. Mucous membranes moist. Neck: Trachea midline, no thyromegaly or masses palpated, and no cervical lymphadenopathy. Supple, full range of motion without nuchal rigidity, or vertebral point tenderness. No Meningismus. Chest/axilla: Normal chest wall appearance and motion. Nontender with no deformity. No lesions are appreciated. Cardiovascular: Regular rate and rhythm with a normal S1 and S2. No gallops, murmurs, or rubs. Normal PMI, no JVD. No pulse deficits. Respiratory: Lungs have equal breath sounds bilaterally, clear to auscultation and percussion. No rales, rhonchi or wheezes noted. No increased work of breathing, no retractions or nasal flaring. Back: No spinal tenderness. No costovertebral tenderness. Full range of motion. Skin: Warm, dry with normal turgor. Normal color with no rashes, no lesions, and no evidence of cellulitis. MS/ Extremity: Pulses equal, no cyanosis. Neurovascular intact. Full, normal range of motion. Neuro: Awake and alert, GCS 15, oriented to person, place, time, and situation. Cranial nerves II-XII grossly intact. Motor strength 5/5 in all extremities. Sensory grossly intact. Cerebellar exam normal. Normal gait. Psych: Awake, alert, with orientation to person, place and time. Behavior, mood, and affect are within normal limits. 18:08 Abdomen/GI: Inspection: abdomen appears normal, Bowel sounds: active, Palpation: mild abdominal tenderness, in the suprapubic area, right lower quadrant and left lower quadrant, Liver: no appreciated palpable abnormalities, Hernia: not appreciated. Vital Signs: 17:48 BP 148 / 97; Pulse 109; Resp 18; Temp 98.3; Pulse Ox 96% ; Weight 86.18 kg; Height 5 sv ft. 7 in. (170.18 cm); Pain 8/10; 19:38 BP 123 / 93; Pulse 77; Resp 14; Pulse Ox 100% on R/A; Pain 2/10; ls4 20:35 BP 122 / 74; Pulse 72; Resp 17; Temp 98.3; Pulse Ox 99% on R/A; Pain 3/10; ls4 17:48 Body Mass Index 29.76 (86.18 kg, 170.18 cm) sv MDM: 17:53 Patient medically screened. [facility] 18:10 Data reviewed: vital signs, nurses notes, lab test result(s), radiologic studies, CT manjit scan, ultrasound. 12/18 18:06 Order name: CBC with Diff; Complete Time: 18:58 [facility] 12/18 18:06 Order name: Comprehensive Metabolic Panel; Complete Time: 19:27 [facility] 12/18 18:06 Order name: Urine Culture [facility] 12/18 18:06 Order name: US Scrotum Testicles; Complete Time: 18:57 [facility] 12/18 18:06 Order name: CT Stone Protocol; Complete Time: 18:57 [facility] 12/18 20:32 Order name: Urine Dipstick--Ancillary (enter results); Complete Time: 00:03 ma 12/18 18:06 Order name: Urine Dipstick-Ancillary (obtain specimen); Complete Time: 19:34 [facility] Administered Medications: 18:30 Drug: NS 0.9% 1000 ml Route: IV; Rate: 1 bolus; Site: left antecubital; ls4 19:30 Follow up: IV Status: Completed infusion ls4 18:30 Drug: Zofran (Ondansetron) 4 mg Route: IVP; Site: left antecubital; ls4 19:26 Follow up: Response: No adverse reaction; Marked relief of symptoms ls4 19:26 Follow up: Response: No adverse reaction; Marked relief of symptoms ls4 18:32 Drug: morphine 4 mg Route: IVP; Site: left antecubital; ls4 19:00 Follow up: Response: No adverse reaction; Marked relief of symptoms ls4 18:59 Not Given (Other Intervention Used; o): morphine 2 mg IVP once; (PAIN>8) RASS on ADMN: ls4 Combtv4, Very Agttd3, Agttd2, Rstlss1, AlertClm0, Drwsy-1, LtSdtn-2, ModSdtn-3, DpSdtn-4, UnArsble-5 x2 19:10 Drug: Rocephin 1 grams Route: IV; Rate: per protocol; Site: right antecubital; ls4 19:29 Follow up: Response: No adverse reaction; IV Status: Completed infusion; IV Intake: [id number] 19:19 Drug: LevaQUIN 750 mg Volume: 150 ml; Route: IVPB; Infused Over: 90 mins; Site: right ls4 antecubital; 20:30 Follow up: IV Status: Completed infusion; IV Intake: 150ml ls4 20:30 Follow up: Response: No adverse reaction ls4 19:28 Drug: TORadol 30 mg Route: IVP; Site: left antecubital; ls4 19:36 Follow up: Response: No adverse reaction; Marked relief of symptoms ls4 20:00 Follow up: Response: No adverse reaction; Marked relief of symptoms ls4 Disposition: 12/19/19 19:29 Discharged to Home. Impression: Epididymo-orchitis, Epididymitis, Inguinal hernia. - Condition is Stable. - Discharge Instructions: Epididymitis, Orchitis, Inguinal Hernia, Adult, [id number]-[id number], Inguinal Hernia, Adult, Testicular Self-Exam, [id number]-[id number]. - Prescriptions for Levaquin 750 mg Oral Tablet - take 1 tablet by ORAL route once daily for 8-10 days; 9 tablet. Tylenol- Codeine #3 300-30 mg Oral Tablet - take 2 tablet by ORAL route every 6 hours As needed; 30 tablet. Motrin IB 200 mg Oral Tablet - take 1 tablet by ORAL route every 6 hours As needed as needed with food; 30 tablet. - Medication Reconciliation Form, Thank You Letter, Antibiotic Education, Prescription Opioid Use form. - Follow up: Private Physician; When: 2 - 3 days; Reason: Recheck today's complaints, Continuance of care, Re-evaluation by your physician. Follow up: Jair Kc; When: 2 - 3 days; Reason: Recheck today's complaints, Re-evaluation by your physician. - Problem is new. - Symptoms have improved. Signatures: Dispatcher [employer] Kirstie Desai, RN RN Jose Angel Persaud MD MD cha Therrien, Shelly, FLAP PRESSER-C FLAP PRESSER-Csnw Estefany Pineda, RN RN ls4 Corrections: (The following items were deleted from the chart) 21:06 19:29 12/19/2019 19:29 Discharged to Home. Impression: Epididymo-orchitis; ls4 Epididymitis; Inguinal hernia. Condition is Stable. Discharge Instructions: Epididymitis, Orchitis, Testicular Self-Exam, [id number], Inguinal Hernia, Adult, [id number]-[id number], Inguinal Hernia, Adult. Prescriptions for Levaquin 750 mg Oral Tablet - take 1 tablet by ORAL route once daily for 8-10 days; 9 tablet, Tylenol-Codeine #3 300-30 mg Oral Tablet - take 2 tablet by ORAL route every 6 hours As needed; 30 tablet, Motrin IB 200 mg Oral Tablet - take 1 tablet by ORAL route every 6 hours As needed as needed with food; 30 tablet. and Forms are Medication Reconciliation Form, Thank You Letter, Antibiotic Education, Prescription Opioid Use. Follow up: Private Physician; When: 2 - 3 days; Reason: Recheck today's complaints, Continuance of care, Re-evaluation by your physician. Follow up: Jair Kc; When: 2 - 3 days; Reason: Recheck today's complaints, Re-evaluation by your physician. Problem is new. Symptoms have improved. snw
[2019-12-19 20:55] LABS: Urine Blood NEGATIVE (NEG); Urine Glucose NEGATIVE (NEG); Urine Protein 1+ (NEG); Urine Specific Gravity >1.030 (1.005-1.030); Urine pH 5.5 (5.0-7.0)
[2019-12-19 21:20] VITALS: TEMP 98.3
[2019-12-19 21:23] VITALS: BP 122/74; O2SAT 99
== END 2019-12-19 21:06 | disposition home or self-care (01) ==
LOC: ER 17:45
DX: N45.3 Epididymo-orchitis (principal); N45.1 Epididymitis; K40.20 Bilateral inguinal hernia, without obstruction or gangrene, not specified as recurrent; F17.210 Nicotine dependence, cigarettes, uncomplicated
CPT/HCPCS: 36415; 74176; 76377; 76870; 80053; 81003; 85025; 87086; 87088; 96361; 96365; 96375; 99284; J0696; J2405; J7030

== ENCOUNTER 2020-01-31 15:04 | Emergency (ER) | payer SELFPAY ==
--- NOTE | 2020-01-31 15:23 | EDPHYS ---
Physician Documentation [facility] Name: Hemanth Plummer Jr Age: 44 yrs Sex: Male : 1975 Arrival Date: 01/31/2020 Time: 15:09 Bed 19 Private MD: ED Physician Precious Jin HPI: 01/30 15:28 This 44 yrs old Male presents to ER via Ambulatory with complaints of STD snw Exposure. 15:28 Onset: The symptoms/episode began/occurred suddenly, 3 day(s) ago, post unprotected snw intercourse. Associated signs and symptoms: Pertinent positives: dysuria, post unprotected intercourse. It is unknown whether or not the patient has had similar symptoms in the past. The patient has not recently seen a physician. Historical: - Allergies: 15:18 NKA; em - Home Meds: 15:18 None [Active]; em - PMHx: 15:18 None; em - PSHx: 15:18 Back; Hernia repair; em - Immunization history:: Adult Immunizations up to date. - Social history:: Smoking status: Patient reports the use of cigarette tobacco products, smokes one-half pack cigarettes per day. ROS: 15:28 Constitutional: Negative for fever, chills, and weight loss, Eyes: Negative for injury, snw pain, redness, and discharge, ENT: Negative for injury, pain, and discharge, Neck: Negative for injury, pain, and swelling, Cardiovascular: Negative for chest pain, palpitations, and edema, Respiratory: Negative for shortness of breath, cough, wheezing, and pleuritic chest pain, Abdomen/GI: Negative for abdominal pain, nausea, vomiting, diarrhea, and constipation, Back: Negative for injury and pain, MS/Extremity: Negative for injury and deformity, Skin: Negative for injury, rash, and discoloration, Neuro: Negative for headache, weakness, numbness, tingling, and seizure, Psych: Negative for depression, anxiety, suicide ideation, homicidal ideation, and hallucinations. 15:28 : Positive for urinary symptoms, burning with urination, penile discharge, greenish/yellow discharge x 3 days. Exam: 15:28 Constitutional: This is a well developed, well nourished patient who is awake, alert, snw and in no acute distress. Head/Face: Normocephalic, atraumatic. Eyes: Pupils equal round and reactive to light, extra-ocular motions intact. Lids and lashes normal. Conjunctiva and sclera are non-icteric and not injected. Cornea within normal limits. Periorbital areas with no swelling, redness, or edema. ENT: Nares patent. No nasal discharge, no septal abnormalities noted. Tympanic membranes are normal and external auditory canals are clear. Oropharynx with no redness, swelling, or masses, exudates, or evidence of obstruction, uvula midline. Mucous membranes moist. Neck: Trachea midline, no thyromegaly or masses palpated, and no cervical lymphadenopathy. Supple, full range of motion without nuchal rigidity, or vertebral point tenderness. No Meningismus. Chest/axilla: Normal chest wall appearance and motion. Nontender with no deformity. No lesions are appreciated. Cardiovascular: Regular rate and rhythm with a normal S1 and S2. No gallops, murmurs, or rubs. Normal PMI, no JVD. No pulse deficits. Respiratory: Lungs have equal breath sounds bilaterally, clear to auscultation and percussion. No rales, rhonchi or wheezes noted. No increased work of breathing, no retractions or nasal flaring. Abdomen/GI: Soft, non-tender, with normal bowel sounds. No distension or tympany. No guarding or rebound. No evidence of tenderness throughout. Back: No spinal tenderness. No costovertebral tenderness. Full range of motion. Skin: Warm, dry with normal turgor. Normal color with no rashes, no lesions, and no evidence of cellulitis. MS/ Extremity: Pulses equal, no cyanosis. Neurovascular intact. Full, normal range of motion. Neuro: Awake and alert, GCS 15, oriented to person, place, time, and situation. Cranial nerves II-XII grossly intact. Motor strength 5/5 in all extremities. Sensory grossly intact. Cerebellar exam normal. Normal gait. Psych: Awake, alert, with orientation to person, place and time. Behavior, mood, and affect are within normal limits. Vital Signs: 15:16 BP 129 / 93; Pulse 103; Resp 18; Temp 98.6(O); Pulse Ox 100% on R/A; Weight 92.99 kg; em Height 5 ft. 7 in. (170.18 cm); Pain 6/10; 15:16 Body Mass Index 32.11 (92.99 kg, 170.18 cm) MDM: 15:21 Patient medically screened. snw 15:27 Data reviewed: vital signs, nurses notes. Data interpreted: Pulse oximetry: on room air snw is 100 %. Interpretation: normal. Counseling: I had a detailed discussion with the patient and/or guardian regarding: the historical points, exam findings, and any diagnostic results supporting the discharge/admit diagnosis, the need for outpatient follow up, to return to the emergency department if symptoms worsen or persist or if there are any questions or concerns that arise at home. Special discussion: I have referred the patient to see his PCP for further evaluation of high blood pressure. Based on the history and exam findings, there is no indication for further emergent testing or inpatient evaluation. I discussed with the patient/guardian the need to see the primary care provider for further evaluation of the symptoms. Administered Medications: 15:35 Drug: Zithromax 1 grams Route: PO; 15:45 Follow up: Response: No adverse reaction 15:36 Drug: Rocephin (cefTRIAXone) 500 mg Route: IM; Site: left ventrogluteal; 15:45 Follow up: Response: No adverse reaction Disposition: 01/31/20 15:23 Discharged to Home. Impression: Urethritis and urethral syndrome. - Condition is Stable. - Discharge Instructions: Sexually Transmitted Disease, Urethritis, Adult, Safe Sex. - Medication Reconciliation Form, Thank You Letter, Antibiotic Education, Prescription Opioid Use form. - Follow up: Emergency Department; When: As needed; Reason: Worsening of condition. Follow up: Private Physician; When: 2 - 3 days; Reason: Recheck today's complaints, Continuance of care, Re-evaluation by your physician. Addendum: 02/02/2020 18:21 Co-signature as Attending Physician, Precious Jin MD. m a2 Signatures: Marissa Choudhury, CONSTANTINE-C CHIEF LIFESTYLE OFFICER-Andreyw Mike Correa, RN RN Precious Jin MD MD [facility] Jenae Hurtado RN RN Corrections: (The following items were deleted from the chart) 01/30 15:46 15:23 01/31/2020 15:23 Discharged to Home. Impression: Urethritis and urethral ah syndrome. Condition is Stable. Forms are Medication Reconciliation Form, Thank You Letter, Antibiotic Education, Prescription Opioid Use. Follow up: Emergency Department; When: As needed; Reason: Worsening of condition. Follow up: Private Physician; When: 2 - 3 days; Reason: Recheck today's complaints, Continuance of care, Re-evaluation by your physician. carson
--- NOTE | 2020-01-31 15:23 | ER ---
Nurse's Notes [facility] Name: Hemanth Plummer Jr Age: 44 yrs Sex: Male : 1975 Arrival Date: 01/31/2020 Time: 15:09 Bed 19 Private MD: Diagnosis: Urethritis and urethral syndrome Presentation: 01/30 15:16 Chief complaint: Patient states: think I have STD, reports burning with urination and em discharge for 3 days, denies fever. Coronavirus screen: Proceed with normal triage. Patient denies a cough. Patient denies shortness of breath or difficulty breathing. Patient denies measured and/or subjective temperature greater than 100.4F prior to today's visit. Patient denies travel on a cruise ship or to a country the [facility] currently lists as an affected area. Patient denies contact with known and/or suspected case of COVID-19. Ebola Screen: Patient negative for fever greater than or equal to 101.5 degrees Fahrenheit, and additional compatible Ebola Virus Disease symptoms Patient denies exposure to infectious person. Patient denies travel to an Ebola-affected area in the 21 days before illness onset. No symptoms or risks identified at this time. Initial Sepsis Screen: Does the patient meet any 2 criteria? HR > 90 bpm. No. Patient's initial sepsis screen is negative. Does the patient have a suspected source of infection? Yes: Dysuria/Frequency/Urgency/UTI. Risk Assessment: Do you want to hurt yourself or someone else? Patient reports no desire to harm self or others. Onset of symptoms was January 27, 2020. 15:16 Method Of Arrival: Ambulatory em 15:16 Acuity: NIEVES 4 em Historical: - Allergies: 15:18 NKA; em - Home Meds: 15:18 None [Active]; em - PMHx: 15:18 None; em - PSHx: 15:18 Back; Hernia repair; em - Immunization history:: Adult Immunizations up to date. - Social history:: Smoking status: Patient reports the use of cigarette tobacco products, smokes one-half pack cigarettes per day. Screenin:38 Abuse screen: Denies threats or abuse. Nutritional screening: No deficits noted. Tuberculosis screening: No symptoms or risk factors identified. Fall Risk None identified. Assessment: 15:36 General: Appears in no apparent distress. Pain: Denies pain. Neuro: Level of ah Consciousness is awake, alert, Oriented to person, place, time, situation. Cardiovascular: Capillary refill Patient's skin is warm and dry. Respiratory: Airway is patent Respiratory effort is even, unlabored, Respiratory pattern is regular, symmetrical. GI: No signs and/or symptoms were reported involving the gastrointestinal system. Patient currently denies nausea, vomiting. : Reports discharge, from penis that is 3 days pain. EENT: No signs and/or symptoms were reported regarding the EENT system. Derm: No signs and/or symptoms reported regarding the dermatologic system. Musculoskeletal: No signs and/or symptoms reported regarding the musculoskeletal system. Vital Signs: 15:16 BP 129 / 93; Pulse 103; Resp 18; Temp 98.6(O); Pulse Ox 100% on R/A; Weight 92.99 kg; em Height 5 ft. 7 in. (170.18 cm); Pain 6/10; 15:16 Body Mass Index 32.11 (92.99 kg, 170.18 cm) em ED Course: 15:09 Patient arrived in ED. mr 15:18 Triage completed. em 15:18 Arm band placed on. em 15:21 Marissa Choudhury FNP-C is [facility]. snw 15:21 Precious Jin MD is Attending Physician. snw 15:22 Jenae Hurtado, RN is Primary Nurse. ah 15:44 Patient has correct armband on for positive identification. Call light in reach. ah 15:44 No provider procedures requiring assistance completed. Patient did not have IV access during this emergency room visit. Administered Medications: 15:35 Drug: Zithromax 1 grams Route: PO; 15:45 Follow up: Response: No adverse reaction 15:36 Drug: Rocephin (cefTRIAXone) 500 mg Route: IM; Site: left ventrogluteal; 15:45 Follow up: Response: No adverse reaction Outcome: 15:23 Discharge ordered by . snw 15:43 Discharged to home ambulatory. 15:43 Condition: good 15:43 Discharge instructions given to patient, Instructed on discharge instructions, follow up and referral plans. Demonstrated understanding of instructions, follow-up care. 15:46 Patient left the ED. Signatures: Marissa Choudhury FNP-C FNP-Betty Adair mr Toneyoz, Mike, RN RN Jenae Boyd, RN RN
[2020-01-31] MEDS ORDERED: AZITHROMYCIN 250 MG TAB ONE ×2 (15:33→15:35)
[2020-01-31] MEDS ORDERED: CEFTRIAXONE 500 MG/VIAL ONE (15:33)
[2020-01-31] MEDS ORDERED: LIDOCAINE 1% MPF 2 ML AMPULE ONE (15:35)
[2020-01-31 15:52] VITALS: BP 129/93; TEMP 98.6; O2SAT 100
== END 2020-01-31 15:46 | disposition home or self-care (01) ==
LOC: ER 15:04
DX: N34.3 Urethral syndrome, unspecified (principal); F17.210 Nicotine dependence, cigarettes, uncomplicated
CPT/HCPCS: 96372; 99283; J0696; J2001

== ENCOUNTER 2024-06-19 12:56 | Emergency (ER) | payer OTHER, SELFPAY ==
[2024-06-19] MEDS ORDERED: HYDROCODONE/APAP 7.5/325 MG TAB ONE (13:21)
[2024-06-19] MEDS ORDERED: TDAP (DIPHTH,PERTUSS(ACELL),TET VAC) 0.5 ML VIAL IMVAC ONE (13:21)
--- NOTE | 2024-06-19 13:31 | RAD REPORT ---
EXAMINATION: CT MAXILLOFACIAL WITHOUT CONTRAST CLINICAL INDICATION: Facial injury and pain status post trauma TECHNIQUE: Axial images were obtained through the facial bones and orbits without intravenous contras t. Sagittal and coronal reconstructions were created from the data. One or more of the following dose reduction techniques were used: Automated exposure control, adjustment of the mA and/or kV accor ding to patient size, and/or iterative reconstruction. Unless otherwise specified, incidental findings do not require dedicated imaging follow-up. COMPARISON: No prior exam. FINDINGS: Left orbital floor fracture. The fracture is depressed 7 mm into the left maxillary sinus. Blood is present within the left maxillary sinus. Air within the superficial tissues left cheek The left globe is intact. No TMJ dislocation Dental caries IMPRESSION: Left orbital floor fracture
[2024-06-19] MEDS ORDERED: LIDOCAINE 2% W/EPI 1:200,000 MPF 20 ML VIAL IM ONE (14:39)
--- NOTE | 2024-06-19 15:20 | EDPHYS ---
Physician Documentation [facility] Name: Hemanth Plummer Jr Age: 48 yrs Sex: Male : 1975 Arrival Date: 06/19/2024 Time: 12:56 Bed 9 Private MD: ED Physician James Bradford HPI: 06/19 13:15 This 48 yrs old Male presents to ER via Ambulatory with complaints of Facial cp Injury. 13:15 The patient or guardian reports injury, trauma. The complaints affect the nose, left cp cheek and left eye. Context of injury: The problem was sustained at work, resulted from struck by tree limb accidently. Onset: The symptoms/episode began/occurred today. Associated signs and symptoms: Loss of consciousness: This patient did not experience any loss of consciousness. Pertinent negatives: headache, neck pain, vomiting. Historical: - Allergies: 13:08 NKA; iw - Home Meds: 13:08 None [Active]; iw - PMHx: 13:08 None; iw - Immunization history:: Last tetanus immunization: > 10 years ago. - Infectious Disease History:: Denies. - Social history:: Smoking status: Patient denies any tobacco usage or history of. ROS: 13:20 Constitutional: hx per hpi cp 13:20 Neck: Negative for pain with movement, pain at rest, cp 13:20 Cardiovascular: Negative for chest pain, 13:20 Abdomen/GI: Negative for vomiting, 13:20 Back: Negative for pain at rest, pain with movement, 13:20 Neuro: Negative for altered mental status, headache, loss of consciousness, 13:20 All other systems are negative, Exam: 13:25 Constitutional: The patient appears in no acute distress, alert, awake, cp non-diaphoretic, non-toxic, well developed, well nourished, uncomfortable, 13:25 Head/face: Noted is contusion, that is superficial, of the left cheek, a cp laceration(s), that is deep, that is linear, of the left cheek, swelling, that is mild, of the left cheek, Sinus tenderness, that is moderate, is located over the left maxillary sinus, 13:25 Eyes: Periorbital structures: appear normal, Pupils: equal, round, and reactive to light and accomodation, Extraocular movements: intact throughout, Conjunctiva: normal, no exudate, no injection, Sclera: no appreciated abnormality, Lids and lashes: appear normal, bilaterally, Visual bro: are intact, 13:25 ENT: External ear(s): are unremarkable, Nose: is normal, Mouth: Lips: moist, Oral mucosa: pink and intact, moist, Posterior pharynx: Airway: no evidence of obstruction, patent, 13:25 Neck: C-spine: vertebral tenderness, is not appreciated, crepitus, is not appreciated, ROM/movement: is normal, is supple, without pain, no range of motions limitations, 13:25 Chest/axilla: Inspection: normal, Palpation: is normal, no crepitus, no tenderness, 13:25 Cardiovascular: Rate: tachycardic, Rhythm: regular, 13:25 Respiratory: the patient does not display signs of respiratory distress, Respirations: normal, no use of accessory muscles, no retractions, labored breathing, is not present, Breath sounds: are clear throughout, no decreased breath sounds, no stridor, no wheezing, 13:25 Abdomen/GI: Inspection: abdomen appears normal, Palpation: abdomen is soft and non-tender, in all quadrants, 13:25 Back: pain, is absent, ROM is normal, 13:25 Neuro: Orientation: to person, place \T\ time. Mentation: is normal, Motor: moves all fours, strength is normal, Sensation: is normal, Gait: is steady, Vital Signs: 13:08 BP 140 / 96; Pulse 105; Resp 18; Temp 97; Pulse Ox 98% ; Weight 95.25 kg; Height 5 ft. iw 7 in. ; Pain 10/10; 13:08 Body Mass Index 32.89 (95.25 kg, 170.18 cm) iw 13:08 Pain Scale: Adult iw Melanie Coma Score: 13:15 Eye Response: spontaneous(4). Motor Response: obeys commands(6). Verbal Response: cp oriented(5). Total: 15. Visual Acuity: 15:39 Left Eye Visual acuity 20/20, Pupil size 4 mm, ; Right Eye Visual acuity 20/20, Pupil ss size 4 mm, ; Both Eyes Visual acuity 20/20; Without Lenses; Laceration: 15:45 Wound Repair of 1.5cm ( 0.6in ) subcutaneous laceration to left facial cheek area. cp Linear shaped.. Distal neuro/vascular/tendon intact. Anesthesia: Local anesthetic administered with 5 mls of 2% lidocaine. Wound prep: Simple cleansing by me. Skin closed with 2 5-0 Prolene using interrupted sutures and sterile technique. Dressed with Bacitracin. Patient tolerated well. MDM: 13:14 Patient medically screened. cp 15:20 Data reviewed: vital signs, nurses notes, radiologic studies, CT scan, and as a result, cp I will discharge patient. 06/19 13:11 Order name: CT Facial Bones W/O Con; Complete Time: 13:48 06/19 13:48 Interpretation: Report reviewed. 06/19 13:53 Order name: Visual Acuity; Complete Time: 15:34 06/19 14:22 Order name: Dressing - Wound; Complete Time: 14:37 06/19 14:22 Order name: Gloves, Sterile; Complete Time: 14:37 06/19 14:22 Order name: Setup Suture Tray; Complete Time: 14:37 06/19 15:08 Order name: Wound dressing; Complete Time: 15:39 cp Administered Medications: 13:26 Drug: Hydrocodone-Acetaminophen PO (7.5 mg-325 mg) 1 tabs PO once; RASS on ADMIN: ss Combtv4, Very Agttd3, Agttd2, Rstlss1, AlertClm0, Drwsy-1, Lt Sdtn-2, Mod Sdtn-3, Dp Sdtn-4, UnArsble-5 Route: PO; 15:15 Follow up: Response: No adverse reaction 13:26 Drug: Boostrix Tdap IM 0.5 ml IM once; as a single dose {Note: 4799G 07/01/2026.} ss Route: IM; Site: right deltoid; 15:15 Follow up: Response: No adverse reaction 15:02 Drug: Lidocaine Infiltration (2 %) 5 ml 5 ml Infiltration once; with epinephrine {Note: ss Administered to wound by PA. Jose Angel} Volume: 5 ml; Route: Infiltration; 15:34 Drug: Amoxicillin-Clavulanate PO 875 mg PO once Route: PO; ss 15:39 Follow up: Response: Medication Administered at Departure ss Disposition: 06/20 15:32 Chart complete. cp Disposition Summary: 06/19/24 15:20 Discharge Ordered Notes: Location: Home cp Problem: new cp Symptoms: have improved cp Condition: Stable cp Diagnosis - Laceration without foreign body of unspecified part of head cp - Fracture of orbital floor - left cp Followup: cp - With: Purvi Dumont MD - When: 2 - 3 days - Reason: left orbital floor fracture Discharge Instructions: - Discharge Summary Sheet cp - Orbital Fracture cp - Facial Laceration cp Forms: - Medication Reconciliation Form cp - Antibiotic Education cp - Prescription Opioid Use cp - Patient Portal Instructions cp - Leadership Thank You Letter cp Prescriptions: - acetaminophen-codeine 300-30 mg Oral tablet - take 2 tablet ORAL route 3 times per day as needed for pain; 16 tablet; cp Refills: 0, Product Selection Permitted - Augmentin 875-125 mg Oral tablet - take 1 tablet ORAL route every 12 hours for 14 days; 28 tablet; Refills: 0, cp Product Selection Permitted - Ibuprofen 800 mg Oral Tablet - take 1 tablet ORAL route every 8 hours As needed take with food; 30 tablet; cp Refills: 0, Product Selection Permitted Addendum: 06/21/2024 17:05 Co-signature as Attending Physician, James Bradford MD I reviewed the patient's care r n provided by the Advanced Practice Provider and agree with the diagnosis and treatment plan. Signatures: Dispatcher [employer] Nasreen Pitts, James Castro RN, MD MD rn Blanchard, Shelby, RN RN ss Page, Corey, SALINAS PA cp
--- NOTE | 2024-06-19 15:20 | ER ---
Nurse's Notes [facility] [place] Name: Hemanth Plummer Jr Age: 48 yrs Sex: Male : 1975 Arrival Date: 06/19/2024 Time: 12:56 Bed 9 Private MD: Diagnosis: Laceration without foreign body of unspecified part of head;Fracture of orbital floor-left Presentation: 06/19 13:07 Chief complaint: Patient states: tree branch swung and hit him in face, was on a iw tractor, did not fall and hit head. 13:07 Acuity: NIEVES 4 iw 13:08 Coronavirus screen: At this time, the client does not indicate any symptoms associated iw with coronavirus-19. Ebola Screen: No symptoms or risks identified at this time. Initial Sepsis Screen: Does the patient meet any 2 criteria? No. Patient's initial sepsis screen is negative. Does the patient have a suspected source of infection? No. Patient's initial sepsis screen is negative. Risk Assessment: Do you want to hurt yourself or someone else? Patient reports no desire to harm self or others. Onset of symptoms was June 19, 2024. 13:08 Method Of Arrival: Ambulatory iw Historical: - Allergies: 13:08 NKA; iw - Home Meds: 13:08 None [Active]; iw - PMHx: 13:08 None; iw - Immunization history:: Last tetanus immunization: > 10 years ago. - Infectious Disease History:: Denies. - Social history:: Smoking status: Patient denies any tobacco usage or history of. Screenin:40 [facility] ED Fall Risk Assessment (Adult) History of falling in the last 3 months, ss including since admission No falls in past 3 months (0 pts) Confusion or Disorientation No (0 pts) Intoxicated or Sedated No (0 pts) Impaired Gait No (0 pts) Mobility Assist Device Used No (0 pt) Altered Elimination No (0 pt) Score/Fall Risk Level 0 - 2 = Low Risk Oriented to surroundings, Maintained a safe environment. Abuse screen: Denies threats or abuse. Denies injuries from another. Nutritional screening: No deficits noted. Tuberculosis screening: Never had TB. Assessment: 13:00 Reassessment: Pt to CT at this time, ambulatory with donor floor technician. ss 13:15 General: Appears in no apparent distress. uncomfortable, Behavior is calm, cooperative. ss Pain: Complains of pain in face Pain currently is 10 out of 10 on a pain scale. Is continuous. Neuro: Level of Consciousness is awake, alert, obeys commands, Oriented to person, place, time, situation. Respiratory: Airway is patent Respiratory effort is even, unlabored, Respiratory pattern is regular, symmetrical. GI: Patient currently denies nausea. EENT: dry blood noted to L nare. Derm: Skin is pink, warm \T\ dry. normal. Musculoskeletal: Circulation, motion, and sensation intact. Range of motion: intact in all extremities. 14:15 Reassessment: Patient appears in no apparent distress at this time. Patient and/or ss family updated on plan of care and expected duration. Pain level reassessed. Patient is alert, oriented x 3, equal unlabored respirations, skin warm/dry/pink. 15:40 Reassessment: Patient appears in no apparent distress at this time. Patient and/or ss family updated on plan of care and expected duration. Pain level reassessed. Vital Signs: 13:08 BP 140 / 96; Pulse 105; Resp 18; Temp 97; Pulse Ox 98% ; Weight 95.25 kg; Height 5 ft. iw 7 in. ; Pain 10/10; 13:08 Body Mass Index 32.89 (95.25 kg, 170.18 cm) iw 13:08 Pain Scale: Adult iw Visual Acuity: 15:39 Left Eye Visual acuity 20/20, Pupil size 4 mm, ; Right Eye Visual acuity 20/20, Pupil ss size 4 mm, ; Both Eyes Visual acuity 20/20; Without Lenses; Melanie Coma Score: 13:15 Eye Response: spontaneous(4). Motor Response: obeys commands(6). Verbal Response: cp oriented(5). Total: 15. ED Course: 13:00 Patient arrived in ED. ra3 13:00 Jose Angel Michael PA is PHCP. cp 13:00 James Bradford MD is Attending Physician. cp 13:08 Triage completed. iw 13:10 Arm band placed on. iw 13:18 Krista Gomez, TAYLOR is Primary Nurse. ss 13:23 CT Facial Bones W/O Con In Process Unspecified. EDMS 15:18 Purvi Dumont MD is Referral Physician. cp 15:40 Patient has correct armband on for positive identification. Bed in low position. ss 15:40 Assist provider with laceration repair on upper vermilion border that was 2.5 cm. or ss less using sutures. Set up tray. Performed by Jose Angel NIÑO Patient tolerated well. Patient did not have IV access during this emergency room visit. Administered Medications: 13:26 Drug: Hydrocodone-Acetaminophen PO (7.5 mg-325 mg) 1 tabs PO once; RASS on ADMIN: ss Combtv4, Very Agttd3, Agttd2, Rstlss1, AlertClm0, Drwsy-1, Lt Sdtn-2, Mod Sdtn-3, Dp Sdtn-4, UnArsble-5 Route: PO; 15:15 Follow up: Response: No adverse reaction ss 13:26 Drug: Boostrix Tdap IM 0.5 ml IM once; as a single dose {Note: 4799G 07/01/2026.} ss Route: IM; Site: right deltoid; 15:15 Follow up: Response: No adverse reaction 15:02 Drug: Lidocaine Infiltration (2 %) 5 ml 5 ml Infiltration once; with epinephrine {Note: ss Administered to wound by PA. Jose Angel} Volume: 5 ml; Route: Infiltration; 15:34 Drug: Amoxicillin-Clavulanate PO 875 mg PO once Route: PO; ss 15:39 Follow up: Response: Medication Administered at Departure ss Medication: 15:57 Vaccine Information Statement (VIS) provided today. Questions and/or concerns ss addressed. VIS edition date: April 2023. Outcome: 15:20 Discharge ordered by . kris 15:40 Discharged to home ambulatory, 15:40 Condition: good 15:40 Discharge instructions given to patient, family, Instructed on discharge instructions, follow up and referral plans. medication usage, Demonstrated understanding of instructions, follow-up care, medications, wound care, Prescriptions given X 3, 15:43 Patient left the ED. Signatures: Dispatcher [employer] EDNasreen Salvador RN RN iw Blanchard, Shelby, RN RN Jose Angel Watson PA PA cp Alva, Ruby ra3 Corrections: (The following items were deleted from the chart) 13:10 13:08 Pulse 105bpm; Resp 18bpm; Pulse Ox 98%; Temp 97F; 95.25 kg; Height 5 ft. 7 in.; iw BMI: 32.8; Pain 10, Adult; iw 15:58 15:40 VIS not applicable for this client. ss ss
[2024-06-19] MEDS ORDERED: AMOX/K CLAV 875 MG TAB ONE (15:22)
[2024-06-19 15:50] VITALS: BP 140/96; TEMP 97; O2SAT 98
== END 2024-06-19 15:43 | disposition home or self-care (01) ==
LOC: ER 12:56
DX: S01.412A Laceration without foreign body of left cheek and temporomandibular area, initial encounter (principal); S02.32XA Fracture of orbital floor, left side, initial encounter for closed fracture
CPT/HCPCS: 70486; 76377; 96372; 99284